=== PATIENT | male | born 1990 | race Two or more races ===

== ENCOUNTER 2016-09-29 14:41 | Emergency (ER) | payer MEDICAID, OTHER ==
[2016-09-29 14:46] VITALS: BP 122/84; PULSE 56; RESP 18; TEMP 98; O2SAT 95
--- NOTE | 2016-09-29 15:13 | EDPHY ---
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 No particular purpura. No recent illness no fever. Patient tells me that for the past week he has had worsening rash. 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 Patient tells me that over the past week the hypoxia he thinks has been getting on his clothes and jacket that he works with. Tells me his disposable jacket that covers him up however this disposable Marcelino does not get thrown away use it again over and over again. He does tell me he can get a new Jacket if need be. He denies pain, fever, recent illness. He tells me he does initially itch. At times it does itch. Past Medical History: No medical history Past Surgical History: No surgical history Social History: Denies daily use of drugs alcohol tobacco products Family History: Noncontributory ROS REVIEW OF SYSTEMS: A comprehensive 10 point review of systems is otherwise negative aside from elements mentioned in the history of present illness. Exam Constitutional triage nursing summary reviewed, vital signs reviewed, awake/ alert. Eyes normal conjunctivae and sclera, EOMI, PERRLA. HENT normal inspection, atraumatic, moist mucus membranes, no epistaxis, neck supple/ no meningismus, no raccoon eyes. Respiratory clear to auscultation bilaterally, normal breath sounds, no respiratory distress, no wheezing. Cardiovascular rate normal, regular rhythm, no murmur, no edema, distal pulses normal. Gastrointestinal soft, non-tender, no rebound, no guarding, normal bowel sounds, no distension, no pulsatile mass. Genitourinary no CVA tenderness. Musculoskeletal no midline vertebral tenderness, full range of motion, no calf swelling, no tenderness of extremities, no meningismus, good pulses, neurovascularly intact. Skin there is a morbilliform raised fine rash located around his neck were collar would be, as well as along the waistband scattered lesions throughout his extremities trunk chest back abdomen, focally located worse around the waistband. No particular purpura. Does not larry. Fine maculopapular, morbilliform no vesicular lesions. Neurologic awake, alert and oriented x 3, AAOx3, moves all 4 extremities equally, motor intact, sensory intact, CN II-XII intact, normal cerebellar, normal vision, normal speech. Psychiatric normal mood/affect. Heme/Lymph/Immune no lymphadenopathy. Differential Diagnosis: Includes but is not limited to in a particular order, contact dermatitis, skin irritation, skin irritation from Epoxy, contact dermatitis from epoxy, contact dermatitis from another chemical. Medical Decision Making: Plan for this patient placed on steroid burst to help with inflammation, recommend he follows up with workman's Comp at work recommend that refrain from wearing the same jacket over and over again, wash clothes in hot water when he arrives home. Also recommend refraining from epoxy exposure this time. Source: Patient - Personal History Tetanus Vaccine Date: 2011 - Medical/Surgical History Hx Asthma: No Hx Chronic Respiratory Disease: No Hx Diabetes: No Hx Cardiac Disease: No Hx Renal Disease: No Hx Cirrhosis: No Hx Alcoholism: No Hx HIV/AIDS: No Hx Splenectomy or Spleen Trauma: No Other PMH: denies - Social History Smoking Status: Current every day smoker Constitutional: Initial Vital Signs Temperature (C) 36.6 C 09/29/16 14:44 Heart Rate 56 L 09/29/16 14:44 Respiratory Rate 18 09/29/16 14:44 Blood Pressure 122/84 H 09/29/16 14:44 O2 Sat (%) 95 09/29/16 14:44 Allergies/Adverse Reactions: acetaminophen [From Vicodin] Allergy (Verified 09/29/16 14:47) hydrocodone [From Vicodin] Allergy (Verified 09/29/16 14:47) Home Medications: Medication Instructions Recorded predniSONE 50 mg PO DAILY #5 tablet 09/29/16 Departure - Departure Disposition: Home, Routine, Self-Care Clinical Impression: Contact dermatitis Qualifiers: Contact dermatitis type: unspecified Contact dermatitis trigger: other trigger Qualified Code(s): L25.8 - Unspecified contact dermatitis due to other agents Condition: Good Instructions: Contact Dermatitis (ED) Additional Instructions: 1. Wash clothes in hot water. 2. Refrain from using the same Jacket at work. 3. Return emergency room if there is worsening rash questions or concerns. Referrals: NONE *PRIMARY CARE P,. [Primary Care Provider] - As per Instructions Prescriptions: predniSONE 50 mg PO DAILY #5 tablet
== END 2016-09-29 15:32 | disposition home or self-care (01) ==
LOC: CED 14:41
DX: L25.8 Unspecified contact dermatitis due to other agents (principal); F17.200 Nicotine dependence, unspecified, uncomplicated

== ENCOUNTER 2016-10-28 02:25 | Emergency (ER) | payer OTHER, MEDICAID ==
[2016-10-28 02:29] VITALS: RESP 20
--- NOTE | 2016-10-28 02:33 | CPEKG ---
Heart Rate: 97 RR Interval: 619 P-R Interval: 156 QRSD Interval: 84 QT Interval: 332 QTC Interval: 422 P Armstrong: 55 QRS Armstrong: 60 T Wave Armstrong: 12 EKG Severity - NORMAL ECG - EKG Impression: SINUS RHYTHM Electronically Signed By: Ktae Juárez 28-Oct-2016 07:18:05
--- NOTE | 2016-10-28 02:36 | EDPHY ---
H & P Stated Complaint: cp Time Seen by Provider: 10/28/16 02:35 HPI/ROS: HPI The patient presents with chest pain which has been intermittent for the last 1 month though was worse today when he was arrested by the police. He presents brought in by police for medical clearance. He describes the pain as sharp, in his left chest, moderate in severity, without radiation. There is no shortness of breath, nausea, vomiting, dizziness, diaphoresis. He has not had any coughing or fever. He denies any recent URI symptoms. He does not have any leg swelling, personal or family history of DVT PE, recent airplane travel.. REVIEW OF SYSTEMS Constitutional: No fever, no chills. Eyes: No discharge. ENT: No sore throat. Cardiovascular: Positive for chest pain, no palpitations. Respiratory: No cough, no shortness of breath. Gastrointestinal: No abdominal pain, no vomiting. Genitourinary: No hematuria. Musculoskeletal: No back pain. Skin: No rashes. Neurological: No headache. PMHx: Healthy Soc Hx: No tobacco or alcohol use PHYSICAL General Appearance: Alert, no distress Eyes: Pupils equal and round no pallor or injection ENT, Mouth: Mucous membranes moist Respiratory: There are no retractions, lungs are clear to auscultation Cardiovascular: Regular rate and rhythm, left-sided anterior midclavicular line chest tenderness Gastrointestinal: Abdomen is soft and non-tender, no masses, bowel sounds normal Neurological: A&O, moves all extremities Skin: Warm and dry, no rashes Musculoskeletal: Neck is supple non tender Extremities: symmetrical, full range of motion Psychiatric: Patient is oriented X 3, there is no agitation Source: Patient Exam Limitations: No limitations - Personal History Current Tetanus/Diphtheria Vaccine: Yes Current Tetanus Diphtheria and Acellular Pertussis (TDAP): Yes Tetanus Vaccine Date: 2011 - Medical/Surgical History Hx Asthma: No Hx Chronic Respiratory Disease: No Hx Diabetes: No Hx Cardiac Disease: No Hx Renal Disease: No Hx Cirrhosis: No Hx Alcoholism: No Hx HIV/AIDS: No Hx Splenectomy or Spleen Trauma: No Other PMH: denies - Social History Smoking Status: Current every day smoker Constitutional: Initial Vital Signs Temperature (C) 36.8 C 10/28/16 02:27 Heart Rate 101 H 10/28/16 02:27 Respiratory Rate 20 10/28/16 02:27 Blood Pressure 155/104 H 10/28/16 02:27 O2 Sat (%) 96 10/28/16 02:27 O2 Delivery Mode Room Air Allergies/Adverse Reactions: acetaminophen [From Vicodin] Allergy (Verified 10/28/16 02:27) hydrocodone [From Vicodin] Allergy (Verified 10/28/16 02:27) Medical Decision Making - Diagnostics EKG Interpretation: EKG: Complete interpretation has been separately recorded in the [email or web address] archive. Summary impression: Normal sinus rhythm Imaging Results: Chest x-ray two views shows no cardiomegaly, no infiltrate, no pneumothorax. Interpreted by me, radiology interpretation is pending. Differential Diagnosis: This is a 26-year-old healthy male who presents for medical clearance with chest pain. This is been intermittent for the last 1 month though became worse tonight. On exam, he has normal vital signs, he has chest wall tenderness with an otherwise normal exam. Differential diagnosis includes costochondritis, pericarditis, pneumonia, pneumothorax, GERD, anxiety. Patient was given ibuprofen for his pain, chest x-ray and EKG were both unremarkable. I doubt any serious pathology. I feel he likely has costochondritis or anxiety contributing to his symptoms. I have explained this to him. He will be discharged from the emergency room. - Data Points Medications Given: Discontinued Medications Ibuprofen (Motrin) 600 mg PO EDNOW ONE Stop: 10/28/16 02:44 Last Admin: 10/28/16 02:55 Dose: 600 mg Departure - Departure Disposition: Home, Routine, Self-Care Clinical Impression: Chest pain Qualifiers: Chest pain type: unspecified Qualified Code(s): R07.9 - Chest pain, unspecified Condition: Good Instructions: Chest Pain (ED) Additional Instructions: Please return to the emergency room if your worse in any way. Referrals: [facility],. [Clinic] - As per Instructions
[2016-10-28] MEDS ORDERED: IBUPROFEN 600 MG TAB PO ONE (02:43)
[2016-10-28 03:29] VITALS: BP 138/88; PULSE 87; TEMP 98.6; O2SAT 97
== END 2016-10-28 03:28 | disposition home or self-care (01) ==
DX: R07.9 Chest pain, unspecified (principal); F17.200 Nicotine dependence, unspecified, uncomplicated